=== PATIENT | male | born 1970 | race African-American/Black ===

== ENCOUNTER 2022-04-17 12:27 | Inpatient (IN) | payer MEDICARE, OTHER ==
[~2022-04-17] VITALS: Ht 188 cm; Wt 124.7 kg
--- NOTE | 2022-04-17 12:45 | NUR ---
JAMILA Ying Professional [id number] "Was agressive to staff this am Left the facility and had to be brought back by [employer]". PLACED ON BED, CALM IN NATURE, AAOX4.
[2022-04-17 13:00] LABS: BASOPHILS # (AUTO) 0.1 K/uL (0.0-0.2); BASOPHILS % (AUTO) 1.9 % (0.0-2.0); EOSINOPHILS % (AUTO) 0.7 % (0.0-6.0); HEMATOCRIT 37 % (39-51); HEMOGLOBIN 12.1 g/dL (13.5-17.5); LYMPHOCYTES # (AUTO) 2.4 K/uL (0.8-4.8); LYMPHOCYTES % (AUTO) 34.6 % (20.0-44.0); MEAN CORPUSCULAR HGB CONC 33 g/dl (31.0-36.0); MEAN CORPUSCULAR VOLUME 82 fL (80-96); MONOCYTES # (AUTO) 0.6 K/uL (0.1-1.30); MONOCYTES % (AUTO) 8.3 % (2.0-12.0); NEUTROPHILS # (AUTO) 3.8 K/uL (1.8-8.9); NEUTROPHILS % (AUTO) 54.5 % (43.0-81.0); PLATELET COUNT (AUTO) 166 K/uL (150-450); RED BLOOD CELL COUNT(AUTO) 4.47 MIL/uL (4.5-6.0)
--- NOTE | 2022-04-17 13:00 | NUR ---
Patient calm and cooperative right now. Given Lunch. Ate 100% Leandro DIRECTOR OF RESTAURANT [employer]PERATIONS sitting at direct Line of sight.
--- NOTE | 2022-04-17 13:03 | NUR ---
covid swab collected and sent to lab.
[2022-04-17 13:19] LABS: POTASSIUM 4.1 mmol/L (3.5-5.1)
[2022-04-17 13:24] LABS: ALBUMIN 3.4 g/dL (3.4-5.0); BILIRUBIN,DIRECT 0.1 mg/dL (0.0-0.2); BILIRUBIN,TOTAL 0.3 mg/dL (0.2-1.0); TOTAL PROTEIN, SERUM 7.2 g/dL (6.4-8.2)
[2022-04-17] MEDS ORDERED: diphenhydrAMINE HCL 50 MG/ML VIAL ONE (13:29)
[2022-04-17] MEDS ORDERED: HALOPERIDOL LACTATE INJ 5 MG/ML VIAL ONE (13:29)
[2022-04-17] MEDS ORDERED: LORAZEPAM INJ 2 MG/ML VIAL ONE (13:30)
[2022-04-17] MEDS ORDERED: diphenhydrAMINE HCL 50 MG/ML VIAL IM ONE (13:30)
[2022-04-17] MEDS ORDERED: HALOPERIDOL LACTATE INJ 5 MG/ML VIAL IM ONE (13:30)
[2022-04-17] MEDS ORDERED: LORAZEPAM INJ 2 MG/ML VIAL IM ONE (13:30)
--- NOTE | 2022-04-17 13:30 | NUR ---
Patient is very aggressive and hitting staff, throwing things to staff's. aware and ordered to restraint patient. Security at bedside to help patient back to bed to restrain. Addendum: 04/17/22 at 1343 by JONNA attempted to leave the hospital er, screaming and pushing away staff.
[2022-04-17] MEDS ORDERED: OLANZAPINE 10 MG VIAL IM ONE ×2 (14:30→14:34)
[2022-04-17] MEDS ORDERED: ZIPRASIDONE MESYLATE 20 MG/VIAL VIAL IM ONE ×2 (16:30→16:35)
[2022-04-17] MEDS ORDERED: WATER FOR INJECTION,STERILE 10 ML ONE (16:36)
[2022-04-17 17:57] LABS: BILIRUBIN,URINE NEGATIVE (NEGATIVE); COLOR,URINE YELLOW (YELLOW); LEUKOCYTE ESTERASE ,URINE NEGATIVE (NEGATIVE); NITRITE, URINE NEGATIVE (NEGATIVE); PROTEIN,URINE NEGATIVE (NEGATIVE); UGLUCOSE NEGATIVE (NEGATIVE); UROBILINOGEN,URINE 0.2 EU/dL (0.2)
[2022-04-17 20:00] VITALS: BP 148/81
--- NOTE | 2022-04-17 21:05 | NUR ---
REPORT GIVEN TO GPS RN
--- NOTE | 2022-04-17 21:21 | NUR ---
PATIENT TRASNFERRED VSS
[2022-04-17] MEDS ORDERED: MAG HYDROX/AL HYDROX/SIMETH 30 ML UDC PO PRN (21:30)
[2022-04-17] MEDS ORDERED: ACETAMINOPHEN 325 MG TABLET PO PRN (21:30)
[2022-04-17] MEDS ORDERED: MAGNESIUM HYDROXIDE 30 ML UDC PO PRN (21:30)
[2022-04-17] MEDS ORDERED: LORAZEPAM 0.5 MG TABLET PO PRN (21:30)
[2022-04-17] MEDS ORDERED: BLOOD SUGAR DIAGNOSTIC 1 EACH STRIP IN ONE (22:00)
[2022-04-17] MEDS ORDERED: AMLO-213 PO (23:30)
[2022-04-17] MEDS ORDERED: ASPI-1169 PO (23:31)
[2022-04-17] MEDS ORDERED: ATOR40TA PO (23:31)
[2022-04-17] MEDS ORDERED: DIVA500T54 PO (23:32)
[2022-04-17] MEDS ORDERED: LISI10TA29 PO (23:35)
[2022-04-17] MEDS ORDERED: METF-440 PO (23:36)
[2022-04-17] MEDS ORDERED: OLAN15TA3 PO (23:37)
[2022-04-17] MEDS ORDERED: RISP3TAB5 PO (23:38)
[2022-04-17 23:51] VITALS: BP 132/77
--- NOTE | 2022-04-17 23:54 | NUR ---
RN NOTES : ADMISSION NOTES: ADMITTED THIS 52Y/O MALE PATIENT DIRECT ADMIT FROM [facility]/ED , INITIALLY FROM [facility] ADMITTED TO 5150 HOLD STATUS, PER HOLD PT. STATUS INCREASED AGITATION,AND AGGRESSIVE BEHAVIOR,PHYSICALLY AGGRESSIVE TOWARDS STAFF, ATTEMPT TO LEAVE THE ER ,SCREAMING AND YELLING THROWING OBJECTS IN THE HALLWAY,HITTING STAFF MEMBER WITH HIS FIST,THROWING OBJECTS TO STAFF MEMBER. UPON FACE TO FACE ASSESSMENT PATIENT IS A&O X1,2, UNCOOPERATIVE,UNPREDICTABLE, ANXIOUS ,EASILY AGITATED, RESTLESS ,PARANOID ,DISHELVED , NEEDY DEMEDNING ,POOR DECISION MAKING , LOUD SPEECH, HYPERVERBAL, TALKING TO SELF ,BIZAAR BEHAVIOR, JUMPING ONE TOPIC TO ANOTHER,NEEDS FREQUENTLY REDIRECTIONS , DENIES SI /HI AT THIS TIME, PT. IS POOR HISTORIAN, POOR INSIGHT ,POOR JUDGEMENT , BOTH MD AWARE AND NOTIFIED OF THE ADMISSION, BELONGINGS CONTRABAND WERE DONE , PT. REFUSED SIGNS ADMISSION CONSENT PAPER DUE TO CONFUSED, POOR HYGINE ,ENCOURAGED PT. TO TAKE SHOWER, PT. RIGHTS DISCUSS BY DIRECTOR SELECTION AND ADMINISTRATION , PROVIDE THE PT. WITH HANDBOOK, AND MEDICATIONS GUIDE, ENVIRONMENTAL SAFETY CHECK DONE, ENCOURAGED PT. VERBALIZED ANY FEELING CONCERN TO STAFF, ORIENT TO UNIT POLICY, NO ACUTE DISTRESS NOTED,VITAL SIGNS WNL ,DENIES ANY PAIN AT THIS TIME,WILL CONTINUE TO MONITOR FOR Q15 SAFETY AND BEHAVIOR.
[2022-04-18] MEDS ORDERED: DEXTROSE 50%-WATER 50 ML DISP.SYRIN IV PRN
--- NOTE | 2022-04-18 06:17 | NUR ---
RN NOTES: PLACED CALL TO JEWELL ANDERSEN AT [phone] , REGARDING ABOUT , JAM MAYFIELD ADMIT IN GPS .
--- NOTE | 2022-04-18 07:23 | NUR ---
GPS RN NOTE RECEIVED PATIENT AWAKE AND IN BED, NO S/S OR COMPLAINTS OF PAIN AT THIS TIME. PATIENT IS DISPLAYING NO S/S OF APPARENT DISTRESS AT THIS TIME. PATIENT'S BREATHING IS UNLABORED WITH EQUAL RISE AND FALL OF THE CHEST. PATIENT IS ALERT AND ORIENTED X 1 ON ROOM AIR WITH A SPO2 OF 96%. PATIENT IS COMPLIANT WITH MEDICATION, DISORGANIZED, RESPONDING TO INTERNAL STIMULI, ANXIOUS AND COOPERATIVE. PATIENT WITH SOME CHALLENGE IN COMMUNICATING R/T SPEECH/ COGNITION, BUT ABLE TO MAKE NEEDS KNOWN. PATIENT DENIES SUICIDE IDEATIONS AND HOMICIDAL IDEATIONS AT THIS TIME. PATIENT ASSISTED WITH TURNING AND REPOSITIONING Q2 HR AND PRN FOR COMFORT AND CIRCULATION. PATIENT HAS NO NEEDS AT THIS TIME. PATIENT EDUCATED ON THE USE OF THE CALL WILSON. PATIENT BED SIDE RAILS UP X2 FOR SAFETY, BED IN LOCKED AND LOW. WILL CONTINUE TO MONITOR Q 15 MIS WITH THE HELP OF STAFF TO MAINTAIN SAFETY.
[2022-04-18] MEDS: BLOOD SUGAR DIAGNOSTIC 1 EACH STRIP IN SCH ×4 (07:30→21:57)
[2022-04-18 08:00] VITALS: BP 99/59
[2022-04-18] MEDS: AMLODIPINE BESYLATE 10 MG TABLET PO SCH (08:31)
[2022-04-18] MEDS: METFORMIN 500 MG TABLET PO SCH ×2 (08:31→17:13)
[2022-04-18] MEDS: ASPIRIN 81 MG TAB.CHEW PO SCH (08:31)
[2022-04-18] MEDS: LISINOPRIL (10MG) 10 MG TABLET PO SCH (08:32)
[2022-04-18] MEDS ORDERED: DIVALPROEX SODIUM PO SCH (09:00)
--- NOTE | 2022-04-18 10:20 | NUR ---
GPS RN NOTE PATIENT SEEN BY 2 [employer] OFFICERS FOR INVESTIGATION OF INCIDENT LAST TUESDAY THAT WAS REPORTED BY PATIENT. INVESTIGATION LED BY OFFICER KIRSTEN AND LASTED FOR AROUND 30 MINUTES. THIS NURSE AND NURSE YVONNE WAS IN THE ROOM WELL. PROVIDED PATIENT WITH CALM AND QUIET ENVIRONMENT. IN STABLE CONDITION. Addendum: 04/18/22 at 1049 by NICOLAS MOSELEY RN WRONG ENTRY
[2022-04-18] MEDS ORDERED: NA P133E RC (10:31)
[2022-04-18] MEDS ORDERED: MAGN400O6 PO (10:31)
[2022-04-18] MEDS ORDERED: BISA10SU11 RC (10:31)
[2022-04-18] MEDS ORDERED: ACET-868 PO (10:31)
[2022-04-18] MEDS ORDERED: DOCU-141 PO (10:31)
--- NOTE | 2022-04-18 10:40 | NUR ---
GPS NOTE SEEN BY DR. CROCKER
[2022-04-18] MEDS: LORAZEPAM 1 MG TABLET PO PRN ×2 (12:23→18:25)
[2022-04-18] MEDS: DIVALPROEX SODIUM 500 MG TABLET.DR PO SCH ×2 (12:23→17:13)
[2022-04-18] MEDS: OLANZAPINE 10 MG TABLET PO SCH ×2 (12:23→21:28)
--- NOTE | 2022-04-18 12:30 | NUR ---
GPS RN NOTE PATIENT NOTED TO HAVE VOLATILE BEHAVIOR, NOTED BY DR. CROCKER WELL. GIVEN ATIVAN PRN, AND PROVIDED WITH CALM AND QUIET ENVIRONMENT.
[2022-04-18 16:00] VITALS: BP 142/85
[2022-04-18] MEDS: risperiDONE 1 MG TABLET PO SCH (17:13)
--- NOTE | 2022-04-18 18:36 | NUR ---
GPS RN NOTE PATIENT GIVEN ATIVAN FOR ANXIETY, NOTED PATIENT TO BE ANXIOUS AND RESTLESS AT TIMES. IN STABLE CONDITION.
--- NOTE | 2022-04-18 20:05 | NUR ---
GPS Nurses Opening Notes: PATIENT AWAKE AND IN BED, NO S/S OR COMPLAINTS OF PAIN AT THIS TIME. PATIENT IS DISPLAYING NO S/S OF APPARENT DISTRESS AT THIS TIME. PATIENT'S BREATHING IS UNLABORED WITH EQUAL RISE AND FALL OF THE CHEST. PATIENT IS ALERT AND ORIENTED X 1 ON ROOM AIR WITH A SPO2 OF 96%. PATIENT IS COMPLIANT WITH MEDICATION, DISORGANIZED, ANXIOUS AND COOPERATIVE. PATIENT WITH SOME CHALLENGE IN COMMUNICATING R/T SPEED AND PROBABLE DUE TO LOSS OF DENTURES, BUT ABLE TO MAKE NEEDS KNOWN. PATIENT DENIES SUICIDE IDEATIONS AND HOMICIDAL IDEATIONS AT THIS TIME. PATIENT ASSISTED WITH TURNING AND REPOSITIONING Q2 HR AND PRN FOR COMFORT AND CIRCULATION. PATIENT HAS NO NEEDS AT THIS TIME. PATIENT EDUCATED ON THE USE OF THE CALL WILSON. PATIENT BED SIDE RAILS UP X2 FOR SAFETY, BED IN LOCKED AND LOW. WILL ENDORSE TO NEXT SHIFT FOR CONTINUITY OF CARE.
[2022-04-18 20:12] VITALS: BP 148/72
[2022-04-18] MEDS: ATORVASTATIN 40 MG TABLET PO SCH (21:28)
[2022-04-18] MEDS: INSULIN REGULAR, HUMAN 100 UNIT/ML 3 ML VIAL SQ PRN (21:59)
--- NOTE | 2022-04-19 05:33 | NUR ---
GPS Nurses Notes: Pt still in bed sleeping, no s/s of pain and discomfort, respiration is unlabored, no SOB noted, all needs attended.
[2022-04-19 07:21] LABS: BASOPHILS # (AUTO) 0.1 K/uL (0.0-0.2); BASOPHILS % (AUTO) 0.7 % (0.0-2.0); EOSINOPHILS % (AUTO) 1.5 % (0.0-6.0); HEMATOCRIT 41 % (39-51); HEMOGLOBIN 13.4 g/dL (13.5-17.5); LYMPHOCYTES # (AUTO) 3.2 K/uL (0.8-4.8); LYMPHOCYTES % (AUTO) 44.8 % (20.0-44.0); MEAN CORPUSCULAR HGB CONC 33 g/dl (31.0-36.0); MEAN CORPUSCULAR VOLUME 82 fL (80-96); MONOCYTES # (AUTO) 0.7 K/uL (0.1-1.30); MONOCYTES % (AUTO) 10.1 % (2.0-12.0); NEUTROPHILS % (AUTO) 42.9 % (43.0-81.0); PLATELET COUNT (AUTO) 192 K/uL (150-450); RED BLOOD CELL COUNT(AUTO) 4.95 MIL/uL (4.5-6.0); WHITE BLOOD COUNT (AUTO) 7.1 K/uL (4.3-11.0)
[2022-04-19] MEDS: BLOOD SUGAR DIAGNOSTIC 1 EACH STRIP IN SCH ×4 (07:58→21:48)
[2022-04-19 08:00] VITALS: BP 151/52
[2022-04-19 08:00] LABS: CALCIUM, SERUM 8.8 mg/dL (8.5-10.1); CREATININE 0.9 mg/dL (0.6-1.3)
[2022-04-19] MEDS: DIVALPROEX SODIUM 500 MG TABLET.DR PO SCH ×3 (08:10→17:00)
[2022-04-19] MEDS: ASPIRIN 81 MG TAB.CHEW PO SCH (08:10)
[2022-04-19] MEDS: METFORMIN 500 MG TABLET PO SCH ×2 (08:10→17:00)
[2022-04-19] MEDS: AMLODIPINE BESYLATE 10 MG TABLET PO SCH (08:11)
[2022-04-19] MEDS: LISINOPRIL (10MG) 10 MG TABLET PO SCH (08:11)
[2022-04-19] MEDS: OLANZAPINE 10 MG TABLET PO SCH ×2 (08:12→21:41)
[2022-04-19] MEDS: risperiDONE 1 MG TABLET PO SCH ×2 (08:12→17:00)
[2022-04-19] MEDS: LORAZEPAM 1 MG TABLET PO PRN ×2 (08:14→17:04)
--- NOTE | 2022-04-19 09:00 | NUR ---
RN NOTES PATIENT VERBALLY AGGRESSIVE THROUGH OUT MORNING. SHOUTING, "I WANT TO GO HOME!" ALL MORNING MEDS GIVEN. PO ATIVAN NOT EFFECTIVE FOR PATIENT BEHAVIOR. WILL CONTINUE MONITORING
[2022-04-19] MEDS: INSULIN REGULAR, HUMAN 100 UNIT/ML 3 ML VIAL SQ PRN ×2 (09:08→17:37)
--- NOTE | 2022-04-19 09:20 | NUR ---
RN NOTES PATIENT SEEN BY DR CROCKER.
--- NOTE | 2022-04-19 09:21 | NUR ---
RN NOTES PATIENT INCREASINGLY MORE AGITATED. VERBALLY AGGRESSIVE AND PHYSICALLY HITTING TABLE AND BED SIDE RAILS IN HIS ROOM. NOT ABLE TO VERBALLY REDIRECT OR CALM DOWN AT THIS THIS TIME. STAFF ASSIST NEEDED. MD AND CHARGE NURSE MADE AWARE. WILL CARRY OUT ORDERS AND CONTINUE TO MONITOR PATIENT SAFETY
--- NOTE | 2022-04-19 09:22 | NUR ---
RN NOTES SEEN BY DR LIANG
[2022-04-19] MEDS ORDERED: HALOPERIDOL LACTATE INJ 5 MG/ML VIAL IM STA (09:23)
[2022-04-19] MEDS ORDERED: diphenhydrAMINE HCL 50 MG/ML VIAL IM STA (09:23)
--- NOTE | 2022-04-19 10:10 | NUR ---
RN-CO: Patient was banging butcher and slamming her his door. He was yelling and wanted to go home. Dr Montgomery seen patient and ordered Haldol 5 mg IM and Banadryl 25 mg IM STAT, noted and carried out. Dr Mckee transferred her care to Dr Montgomery as primary psychiatrist, intake made aware and order done.
--- NOTE | 2022-04-19 10:20 | NUR ---
RN NOTES PATIENT CALM AND QUIET IN HIS ROOM AT THIS TIME. BREATHING EVEN AND UNLABORED WITH NO SIGNS OF ACUTE DISTRESS NOTED. DENIES PAIN. WILL CONTINUE TO MONITOR
--- NOTE | 2022-04-19 10:30 | NUR ---
RN-CO: Patient is calm at thistime , seen walking while eating in the hallway. Denied pain and discomforts.
--- NOTE | 2022-04-19 11:00 | NUR ---
RICHARD Initial Discharge: Patient currently resides at [facility] located at [address] [place] [address]; ([phone]). R[facility] and spoke with Jolly who stated pt is on 7 day bed hold and would need a psych clearance and pt can return back then. RICHARD contacted pt's LPS Conservator Briseida ([phone]) and notified that pt is at [facility]. She will be sending the documents/detain and treat. RICHARD will work with the MD and pt to help coordinate appropriate placement.
--- NOTE | 2022-04-19 11:01 | NUR ---
RICHARD Clinical Note: Pt placed on a 5150 hold for danger to others and GD. Pt was verbally and physically aggressive at this facility. Patient currently resides at [facility] located at [address] [place] [address]; ([phone]). RICHARD contacted [facility] and spoke with Jolly who stated pt is on 7 day bed hold and would need a psych clearance and pt can return back then. RICHARD contacted pt's LPS Conservator Briseida ([phone]) and notified that pt is at [facility]. She will be sending the documents/detain and treat.
--- NOTE | 2022-04-19 11:01 | NUR ---
LPS Conservator: SW contacted pt's LPS Conservator Briseida ([phone]) and notified that pt is at [facility]. She will be sending the documents/detain and treat.
--- NOTE | 2022-04-19 11:58 | NUR ---
LPS Conservator: LPS Conservator Briseida ([phone]) sent Detain and Treat. SW placed in pt's chart and notified charge nurse Ni.
--- NOTE | 2022-04-19 14:36 | NUR ---
Treatment Plan: Pt refused to sign treatment plan and was verbally abusive.
[2022-04-19 16:59] VITALS: BP 118/66
[2022-04-19 20:33] VITALS: BP 107/75
[2022-04-19] MEDS: TEMAZEPAM 7.5 MG CAPSULE PO PRN (21:41)
[2022-04-19] MEDS: ATORVASTATIN 40 MG TABLET PO SCH (21:42)
--- NOTE | 2022-04-19 21:43 | NUR ---
GPS RN NOTE PT REQUESTING FOR SLEEPING MED, RESTORIL 7.5 MG PO GIVEN. CONTINUE TO MONITOR.
--- NOTE | 2022-04-19 22:43 | NUR ---
GPS RN NOTE PT REQUESTING FOR SLEEPING MED, RESTORIL 7.5 MG PO GIVEN. CONTINUE TO MONITOR. Addendum: 04/20/22 at 0707 by ORLANDO LLANOS RN ERROR IN WRITING
--- NOTE | 2022-04-19 22:44 | NUR ---
GPS RN NOTE PT FALL BACK TO SLEEP, NO DISTRESS OR DISCOMFORT NOTED.
[2022-04-20 08:00] VITALS: BP 142/81
[2022-04-20] MEDS: OLANZAPINE 10 MG TABLET PO SCH (08:31)
[2022-04-20] MEDS: BLOOD SUGAR DIAGNOSTIC 1 EACH STRIP IN SCH ×4 (08:31→22:15)
[2022-04-20] MEDS: LISINOPRIL (10MG) 10 MG TABLET PO SCH (08:31)
[2022-04-20] MEDS: ASPIRIN 81 MG TAB.CHEW PO SCH (08:31)
[2022-04-20] MEDS: DIVALPROEX SODIUM 500 MG TABLET.DR PO SCH ×3 (08:31→16:30)
[2022-04-20] MEDS: risperiDONE 1 MG TABLET PO SCH ×2 (08:32→16:30)
[2022-04-20] MEDS: AMLODIPINE BESYLATE 10 MG TABLET PO SCH (08:32)
[2022-04-20] MEDS: METFORMIN 500 MG TABLET PO SCH ×2 (08:32→17:13)
[2022-04-20] MEDS ORDERED: diphenhydrAMINE HCL 50 MG/ML VIAL IM STA (10:51)
[2022-04-20] MEDS ORDERED: HALOPERIDOL LACTATE INJ 5 MG/ML VIAL IM STA (10:52)
--- NOTE | 2022-04-20 11:09 | NUR ---
PATIENT AGITATED, YELLING AND UNPREDICTABLE, VOLUNTARY ACCEPT INJECTIONS WHICH ARE BENADRYL 25 MG IM AND HALDOL 5MG IM. PATIENT REFUSED TAKE VITAL SIGN.
[2022-04-20] MEDS: INSULIN REGULAR, HUMAN 100 UNIT/ML 3 ML VIAL SQ PRN (12:41)
[2022-04-20 16:00] VITALS: BP 145/76
[2022-04-20] MEDS: HALOPERIDOL 5 MG TABLET PO SCH (16:30)
[2022-04-20] MEDS: diphenhydrAMINE HCL 25 MG CAPSULE PO SCH (17:59)
[2022-04-20 19:50] VITALS: BP 133/76
--- NOTE | 2022-04-20 19:50 | NUR ---
GPS RN OPENING NOTES: RECEIVED PATIENT SLEEPING IN BED. EASILY AROUSES EASILY. NO S/S OF DISTRESS. RESPIRATION EVEN AND UNLABORED WITH EQUAL RISE AND FALL OF THE CHEST, ON ROOM AIR. OFFERED FLUID AND SNACKS TOLERATED. BED IN LOWEST POSITION AND LOCKED, SIDE RAILS UP X2 FOR SAFETY. WILL CONTINUE TO MONITOR Q15 FOR MOOD, SAFETY AND BEHAVIOR.
[2022-04-20] MEDS: ATORVASTATIN 40 MG TABLET PO SCH (22:10)
--- NOTE | 2022-04-21 06:58 | NUR ---
GPS RN CLOSING NOTES: PATIENT IS AWAKE AND WATCHING TV IN DAY ROOM. PATIENT SLEPT 9HRS THIS SHIFT. NO S/S OF DISTRESS. RESPIRATION EVEN AND UNLABORED WITH EQUAL RISE AND FALL OF THE CHEST, ON ROOM AIR. ALL PATIENT CARE NEEDS HAVE BEEN MET ANTICIPATED. WILL CONTINUE TO MONITOR Q15 FOR SAFETY, MOOD AND BEHAVIOR AND ENDORSE TO AM SHIFT.
[2022-04-21] MEDS: METFORMIN 500 MG TABLET PO SCH ×2 (07:45→18:05)
[2022-04-21] MEDS: BLOOD SUGAR DIAGNOSTIC 1 EACH STRIP IN SCH ×4 (07:52→20:58)
[2022-04-21] MEDS: INSULIN REGULAR, HUMAN 100 UNIT/ML 3 ML VIAL SQ PRN ×2 (07:56→21:08)
[2022-04-21 08:00] VITALS: BP_SYST 118; BP_SYST 149; BP_DIAS 77; BP_DIAS 81
[2022-04-21] MEDS: risperiDONE 1 MG TABLET PO SCH ×2 (08:01→18:01)
[2022-04-21] MEDS: HALOPERIDOL 5 MG TABLET PO SCH ×3 (08:02→18:00)
[2022-04-21] MEDS: diphenhydrAMINE HCL 25 MG CAPSULE PO SCH ×2 (08:02→18:00)
[2022-04-21] MEDS: DIVALPROEX SODIUM 500 MG TABLET.DR PO SCH ×3 (08:02→18:00)
[2022-04-21] MEDS: ASPIRIN 81 MG TAB.CHEW PO SCH (08:03)
[2022-04-21] MEDS: AMLODIPINE BESYLATE 10 MG TABLET PO SCH (08:04)
[2022-04-21] MEDS: LORAZEPAM 1 MG TABLET PO PRN ×2 (08:25→17:17)
[2022-04-21] MEDS: LISINOPRIL (10MG) 10 MG TABLET PO SCH (09:00)
--- NOTE | 2022-04-21 11:11 | NUR ---
LPS Conservator: RICHARD received a call from [facility] Conservator Briseida ([phone]) who stated that she will visit pt tomorrow 04/22. She stated pt's court hearing is TuesdayApril 27 and reported pt is discharged hospital does not need to attend and that [facility] will proceed with it. RICHARD notified Dr. Montgomery.
[2022-04-21 16:00] VITALS: BP 145/73
--- NOTE | 2022-04-21 19:08 | NUR ---
PT COMPLIANT WITH MEDICATIONS, ALL DAY EVERY HOUR HE DEMANDED HIS MONEY AND STATED''TODAY IS TUESDAY RIGHT? TODAY IS MY PAY DAY AND I WANT MY MONEY AND I WANT MY MONEY AND I WANT TO GO HOME NOW", HE WAS REDIRECTED AND GIVEN JUICE, SNACKS AND ATIVAN PRN PER ORDER, HE WAS COMPLIANT AND REDIRECTED BACK TO ROOM TO REST. NO OTHER EPISODES NOTED AT DURING DAY SHIFT, EASILY REDIRECTED AND OBEYED SIMPLE COMMANDS
--- NOTE | 2022-04-21 19:27 | NUR ---
PT HAD REFUSED THE BS TO BE TAKEN AT 1730, AWAITED TO ASK AGAIN, PT IS NOW ASLEEP AND DELEGATED THE 1730 BS TEST TO ONCOMING RN SHIFT NURSE FOR OBTAINING THE BS READING. PT IS ASLEEP AND FELT BEST TO ALLOW HIM TO REST
[2022-04-21 20:00] VITALS: BP 138/68
[2022-04-21] MEDS: ATORVASTATIN 40 MG TABLET PO SCH (20:58)
[2022-04-21] MEDS: TEMAZEPAM 7.5 MG CAPSULE PO PRN (21:04)
[2022-04-22] MEDS: LORAZEPAM 1 MG TABLET PO PRN ×2 (00:59→19:22)
--- NOTE | 2022-04-22 05:03 | NUR ---
closing notes: alert and orientated X3 requisting food frequently friendly and laughing child like behavior polite to the night nurse calm manner 0100 he came to the nursing station with body movement and agitation in his voice...inquiring about the money he is due "pay Day" "Where is the money $40.00" .Informed him it ws not payday here and I did not owe him the money but I could give him a snack, he walked back tohis room snack given and Ativan given PO. After eating he went to be and slept soundly
[2022-04-22] MEDS: METFORMIN 500 MG TABLET PO SCH ×2 (07:57→17:45)
[2022-04-22] MEDS: BLOOD SUGAR DIAGNOSTIC 1 EACH STRIP IN SCH ×4 (08:04→21:36)
[2022-04-22] MEDS: risperiDONE 1 MG TABLET PO SCH ×2 (08:05→17:34)
[2022-04-22] MEDS: AMLODIPINE BESYLATE 10 MG TABLET PO SCH (08:06)
[2022-04-22] MEDS: ASPIRIN 81 MG TAB.CHEW PO SCH (08:06)
[2022-04-22] MEDS: diphenhydrAMINE HCL 25 MG CAPSULE PO SCH ×2 (08:07→17:34)
[2022-04-22] MEDS: DIVALPROEX SODIUM 500 MG TABLET.DR PO SCH ×3 (08:07→17:34)
[2022-04-22] MEDS: HALOPERIDOL 5 MG TABLET PO SCH ×3 (08:07→17:34)
[2022-04-22] MEDS: LISINOPRIL (10MG) 10 MG TABLET PO SCH (08:08)
--- NOTE | 2022-04-22 11:10 | NUR ---
LPS Conservator: LPS Conservator Briseida ([phone]) came to the hospital to assess pt.
--- NOTE | 2022-04-22 18:43 | NUR ---
PT COOPERATIVE TODAY, WAS REDIRECTED OFTEN DURING DAY SHIFT, KEPT AKSING IF HIS MONEY WAS HERE YET, HE WAS TOLD ALL OF HIS BELONGINGS WERE KEPT IN A SAFE PLACE AND THAT ANY MONEY HE HAD WAS KEPT IN THE SAFE, EXPLAINED TO HIM THAT ALL OF HIS BELONGINGS, CLOTHES, ANY ITEMS AND ANY MONEY THAT IS HIS WILL BE GIVEN TO HIM ONCE HE HAS AUTHORIZATION TO BE DISCHARGED AND THAT THE TIME OF D/C WAS BEING PROCESSED THROUGH AND DETERMINED OF THE EXACT DATE.
--- NOTE | 2022-04-22 19:25 | NUR ---
RN NOTES: ANXIETY PT. C/O FEELING ANXIOUS .RESTLESS , PACING IN HALLWAY ,PRN ATIVAN 1 MG PO GIVEN PER PT. REQUEST, WILL CONTINUE TO MONITOR.
--- NOTE | 2022-04-22 20:16 | NUR ---
RN NOTES: PT.AWAKE ALERT CONFUSED,HYPERVERBAL.FLAT AFFECT,FORGETFUL,ANXIOUS,EASILY AGITATE.PARANOID,UNCOOPERTIVE,UNPREDICTABLE, DISORGANIZED, NEEDS FREQUENTLY REDIRECTIONS, ENCOURAGED PT. TO VERBALIZED ANY FEELING OR CONCERN AND GROUP ACTIVITY ,WILL CONTINUE.MONITORING FOR SAFETY AND BEHAVIOR.
[2022-04-22] MEDS: INSULIN REGULAR, HUMAN 100 UNIT/ML 3 ML VIAL SQ PRN (21:35)
[2022-04-22] MEDS: ATORVASTATIN 40 MG TABLET PO SCH (21:36)
[2022-04-22] MEDS: TEMAZEPAM 7.5 MG CAPSULE PO PRN (22:08)
--- NOTE | 2022-04-22 22:08 | NUR ---
RN NOTES: INSOMNIA PT. C/O UNABLE TO SLEEP ,PRN RESTORIL 7.5MG GIVEN PO FOR SLEEP WILL CONTINUE TO MONITOR.
[2022-04-23] MEDS: LORAZEPAM 1 MG TABLET PO PRN ×2 (06:39→19:35)
--- NOTE | 2022-04-23 06:45 | NUR ---
RN NOTES: ANXIETY PT. C/O FEELING ANXIOUS .RESTLESS , PACING IN HALLWAY ,PRN ATIVAN 1 MG PO GIVEN PER PT. REQUEST, WILL CONTINUE TO MONITOR.
[2022-04-23] MEDS: INSULIN REGULAR, HUMAN 100 UNIT/ML 3 ML VIAL SQ PRN ×4 (07:43→22:03)
[2022-04-23 08:00] VITALS: BP 130/69
[2022-04-23] MEDS: BLOOD SUGAR DIAGNOSTIC 1 EACH STRIP IN SCH ×4 (08:14→22:15)
[2022-04-23] MEDS: HALOPERIDOL 5 MG TABLET PO SCH ×3 (08:15→16:28)
[2022-04-23] MEDS: METFORMIN 500 MG TABLET PO SCH ×2 (08:15→17:06)
[2022-04-23] MEDS: risperiDONE 1 MG TABLET PO SCH ×2 (08:15→16:28)
[2022-04-23] MEDS: DIVALPROEX SODIUM 500 MG TABLET.DR PO SCH ×3 (08:15→16:28)
[2022-04-23] MEDS: ASPIRIN 81 MG TAB.CHEW PO SCH (08:15)
[2022-04-23] MEDS: diphenhydrAMINE HCL 25 MG CAPSULE PO SCH ×2 (08:15→16:28)
[2022-04-23] MEDS: AMLODIPINE BESYLATE 10 MG TABLET PO SCH (08:16)
[2022-04-23] MEDS: LISINOPRIL (10MG) 10 MG TABLET PO SCH (08:16)
--- NOTE | 2022-04-23 10:36 | NUR ---
LPS Conservator: Patient's court hearing for renewal of conservatorship is on 04/27/2022 at 1:30PM. Pt's LPS Conservator Briseida ([phone]) notified this scientific technical writer. Dr. Montgomery aware. Link: [email or web address]
[2022-04-23 16:00] VITALS: BP 144/79
--- NOTE | 2022-04-23 19:36 | NUR ---
RN NOTES: ANXIETY PT. C/O FEELING ANXIOUS .RESTLESS , PACING IN HALLWAY ,PRN ATIVAN 1 MG PO GIVEN PER PT. REQUEST, WILL CONTINUE TO MONITOR.
[2022-04-23 20:21] VITALS: BP 125/81
--- NOTE | 2022-04-23 20:23 | NUR ---
RN NOTES: PT.RESTING HIS ROOM AWAKE ALERT CONFUSED,HYPERVERBAL.FLAT AFFECT,FORGETFUL,ANXIOUS,EASILY AGITATED.PARANOID,UNCOOPERTIVE,UNPREDICTABLE, DISORGANIZED, NEEDS FREQUENTLY REDIRECTIONS, ENCOURAGED PT. TO VERBALIZED ANY FEELING OR CONCERN AND GROUP ACTIVITY WILL CONTINUE.MONITORING FOR SAFETY AND BEHAVIOR.
[2022-04-23] MEDS: ATORVASTATIN 40 MG TABLET PO SCH (22:02)
[2022-04-23] MEDS: TEMAZEPAM 7.5 MG CAPSULE PO PRN (22:36)
[2022-04-24] MEDS: BLOOD SUGAR DIAGNOSTIC 1 EACH STRIP IN SCH ×4 (07:34→21:52)
[2022-04-24] MEDS: INSULIN REGULAR, HUMAN 100 UNIT/ML 3 ML VIAL SQ PRN (07:45)
[2022-04-24 08:00] VITALS: BP 140/73
[2022-04-24] MEDS: ASPIRIN 81 MG TAB.CHEW PO SCH (08:49)
[2022-04-24] MEDS: DIVALPROEX SODIUM 500 MG TABLET.DR PO SCH ×3 (08:49→16:48)
[2022-04-24] MEDS: METFORMIN 500 MG TABLET PO SCH ×2 (08:49→16:48)
[2022-04-24] MEDS: LISINOPRIL (10MG) 10 MG TABLET PO SCH (08:50)
[2022-04-24] MEDS: HALOPERIDOL 5 MG TABLET PO SCH ×3 (08:50→16:48)
[2022-04-24] MEDS: AMLODIPINE BESYLATE 10 MG TABLET PO SCH (08:50)
[2022-04-24] MEDS: diphenhydrAMINE HCL 25 MG CAPSULE PO SCH ×2 (08:51→16:48)
[2022-04-24] MEDS: risperiDONE 1 MG TABLET PO SCH ×2 (08:51→16:49)
[2022-04-24 16:00] VITALS: BP 136/79
--- NOTE | 2022-04-24 20:22 | NUR ---
RN NOTES: PT.RESTING HIS ROOM AWAKE ALERT CONFUSED,HYPERVERBAL.FLAT AFFECT,FORGETFUL,ANXIOUS,EASILY AGITATED.PARANOID,UNCOOPERATIVE,UNPREDICTABLE, DISORGNIZED,ISOLATIVE NEEDS FREQUENTLY REDIRECTIONS, ENCOURAGED PT. TO VERBALIZED ANY FEELING OR CONCERN AND GROUP ACTIVITY WILL CONTINUE.MONITORING FOR SAFETY AND BEHAVIOR.
[2022-04-24 20:23] VITALS: BP 135/73
[2022-04-24] MEDS: ATORVASTATIN 40 MG TABLET PO SCH (21:11)
[2022-04-25] MEDS: LORAZEPAM 1 MG TABLET PO PRN (05:42)
--- NOTE | 2022-04-25 05:43 | NUR ---
RN NOTES: ANXIETY PT. C/O FEELING ANXIOUS .RESTLESS , PACING IN HALLWAY ,PRN ATIVAN 1 MG PO GIVEN PER PT. REQUEST, WILL CONTINUE TO MONITOR.
--- NOTE | 2022-04-25 06:31 | NUR ---
RN NOTES: PT. REFUSED AM CARE AND REFUSED TO TAKE SHOWER REFUSED TO CHANGE GOWN ,LINEN , ENCOURAGED PT. FOR HYGINE, PER PT.NURSE I AM FINE , PT. STRONGLY REFUSED, JUST GIVE ME SOME FOOD , I AM HUNGRY , SNACKS PROVIDE TO THE PT. BEHAVIOUR UNCOOPERATIVE , ANXIOUS , EASILY AGITED, WILL ENDORSE TO AM SHIFT.
[2022-04-25 08:00] VITALS: BP 133/88
[2022-04-25] MEDS: BLOOD SUGAR DIAGNOSTIC 1 EACH STRIP IN SCH ×4 (08:47→21:02)
[2022-04-25] MEDS: INSULIN REGULAR, HUMAN 100 UNIT/ML 3 ML VIAL SQ PRN ×2 (08:49→21:02)
[2022-04-25] MEDS: diphenhydrAMINE HCL 25 MG CAPSULE PO SCH ×2 (08:54→17:13)
[2022-04-25] MEDS: ASPIRIN 81 MG TAB.CHEW PO SCH (08:54)
[2022-04-25] MEDS: DIVALPROEX SODIUM 500 MG TABLET.DR PO SCH ×3 (08:54→17:13)
[2022-04-25] MEDS: risperiDONE 1 MG TABLET PO SCH ×2 (08:54→17:13)
[2022-04-25] MEDS: METFORMIN 500 MG TABLET PO SCH ×2 (08:54→17:13)
[2022-04-25] MEDS: HALOPERIDOL 5 MG TABLET PO SCH ×3 (08:54→17:13)
[2022-04-25] MEDS: LISINOPRIL (10MG) 10 MG TABLET PO SCH (08:55)
[2022-04-25] MEDS: AMLODIPINE BESYLATE 10 MG TABLET PO SCH (08:55)
--- NOTE | 2022-04-25 12:05 | NUR ---
RN OPENING NOTE PATIENT AWAKE IN BED RESTING. A/O X1 CONFUSED, HYPERVERBAL, EASILY AGITATED. NO S/S OF PAIN NOTED AT THIS TIME. ON ROOM AIR, NO DISTRESS OR SHORTNESS OF BREATH NOTED. PATIENT IS COMPLIANT WITH MEDICATIONS. PATIENT DENIES SUICIDE IDEATION AND HOMICIDAL IDEATIONS AT THIS TIME. FALL AND SAFETY MEASURES IN PLACE, BED ALARM ON, BED IN LOW AND LOCK POSITION, CALL LIGHT AND TABLE WITHIN EASY REACH, SIDE RAILS UP X2. WILL CONTINUE TO MONITOR Q15 MINUTES WITH HELP OF STAFF TO MAINTAIN SAFETY.
[2022-04-25 16:00] VITALS: BP 136/89
[2022-04-25 19:56] VITALS: BP 138/84
[2022-04-25] MEDS: ATORVASTATIN 40 MG TABLET PO SCH (21:02)
[2022-04-26] MEDS: BLOOD SUGAR DIAGNOSTIC 1 EACH STRIP IN SCH ×4 (07:37→21:57)
[2022-04-26 08:00] VITALS: BP 118/85
[2022-04-26] MEDS: METFORMIN 500 MG TABLET PO SCH ×2 (08:00→17:55)
[2022-04-26] MEDS: DIVALPROEX SODIUM 500 MG TABLET.DR PO SCH ×3 (09:25→17:50)
[2022-04-26] MEDS: risperiDONE 1 MG TABLET PO SCH ×2 (09:25→17:50)
[2022-04-26] MEDS: ASPIRIN 81 MG TAB.CHEW PO SCH (09:25)
[2022-04-26] MEDS: HALOPERIDOL 5 MG TABLET PO SCH ×3 (09:27→17:50)
[2022-04-26] MEDS: diphenhydrAMINE HCL 25 MG CAPSULE PO SCH ×2 (09:27→17:50)
[2022-04-26] MEDS: AMLODIPINE BESYLATE 10 MG TABLET PO SCH (09:27)
[2022-04-26] MEDS: LISINOPRIL (10MG) 10 MG TABLET PO SCH (09:28)
--- NOTE | 2022-04-26 10:57 | NUR ---
RN-CO: PATIENT IS AWAKE , HE IS SOMEWHAT BETTER. HE IS COOPERATIVE TO STAFF. HE IS ALSO VISIBLE IN THE UNIT AND PARTICIPATING IN GROUPS.PATIENT DENIED PAIN AND DISCOMFORTS.
[2022-04-26] MEDS: INSULIN REGULAR, HUMAN 100 UNIT/ML 3 ML VIAL SQ PRN (12:18)
[2022-04-26 16:00] VITALS: BP 117/71
[2022-04-26 20:06] VITALS: BP 134/72
[2022-04-26] MEDS: ATORVASTATIN 40 MG TABLET PO SCH (21:57)
[2022-04-27] MEDS: BLOOD SUGAR DIAGNOSTIC 1 EACH STRIP IN SCH ×4 (07:40→21:56)
[2022-04-27 08:00] VITALS: BP 123/85
[2022-04-27] MEDS: ASPIRIN 81 MG TAB.CHEW PO SCH (08:20)
[2022-04-27] MEDS: HALOPERIDOL 5 MG TABLET PO SCH ×3 (08:20→16:31)
[2022-04-27] MEDS: diphenhydrAMINE HCL 25 MG CAPSULE PO SCH ×2 (08:20→16:31)
[2022-04-27] MEDS: LISINOPRIL (10MG) 10 MG TABLET PO SCH (08:20)
[2022-04-27] MEDS: risperiDONE 1 MG TABLET PO SCH ×2 (08:20→16:31)
[2022-04-27] MEDS: AMLODIPINE BESYLATE 10 MG TABLET PO SCH (08:21)
[2022-04-27] MEDS: METFORMIN 500 MG TABLET PO SCH ×2 (08:23→18:27)
[2022-04-27] MEDS: DIVALPROEX SODIUM 500 MG TABLET.DR PO SCH ×3 (08:23→16:31)
[2022-04-27] MEDS: INSULIN REGULAR, HUMAN 100 UNIT/ML 3 ML VIAL SQ PRN ×2 (12:00→22:02)
--- NOTE | 2022-04-27 14:12 | NUR ---
SNF Contact: SW spoke with Jolly admin from [facility] ([phone]) (F: [phone]) and sent pt's updated clinicals.
[2022-04-27 16:00] VITALS: BP 116/72
--- NOTE | 2022-04-27 19:30 | NUR ---
GPS RN NOTE, RECEIVED PATIENT AWAKE AND IN BED, NO S/S OR COMPLAINTS OF PAIN AT THIS TIME. PATIENT IS DISPLAYING NO S/S OF APPARENT DISTRESS AT THIS TIME. PATIENT BREATHING IS UNLABORED WITH EQUAL RISE AND FALL OF THE CHEST. PATIENT IS ALERT AND ORIENTED X 1-2 ON ROOM AIR WITH A SPO2 99%. PATIENT IS COMPLIANT WITH MEDICATIONS, ANXIOUS, LABILE, CONFUSED AT TIMES, MAKES NEEDS KNOWN, DISORGANIZED, AND COOPERATIVE. PATIENT DENIES SUICIDAL AND HOMICIDAL IDEATIONS AT THIS TIME. PATIENT ASSISTED WITH TURNING AND REPOSITIONING Q2HR AND PRN FOR COMFORT AND CIRCULATION. PATIENT HAS NO NEEDS AT THIS TIME. PATIENT EDUCATED ON THE USE OF THE CALL WILSON. PATIENT BED SIDE RAILS UP X 2 FOR SAFETY. PATIENT BED IS LOCKED, LOW, WITH BED ALARM ON. WILL CONTINUE TO MONITOR THIS PATIENT Q15 MINUTES WITH THE HELP OF STAFF TO MAINTAIN SAFETY.
[2022-04-27 20:18] VITALS: BP 111/73
[2022-04-27] MEDS: ATORVASTATIN 40 MG TABLET PO SCH (21:48)
--- NOTE | 2022-04-27 22:07 | NUR ---
GPS RN NOTE, PERFORMED ACCU CHECK ON PATIENT WITH A BLOOD SUGAR RESULT OF 142. GAVE 2 UNITS OF REGULAR INSULIN PER SLIDING SCALE. WILL CONTINUE TO MONITOR THIS PATIENT WITH THE HELP OF STAFF.
[2022-04-28 08:00] VITALS: BP 121/87
[2022-04-28] MEDS: diphenhydrAMINE HCL 25 MG CAPSULE PO SCH ×2 (08:44→17:14)
[2022-04-28] MEDS: HALOPERIDOL 5 MG TABLET PO SCH ×3 (08:44→17:14)
[2022-04-28] MEDS: METFORMIN 500 MG TABLET PO SCH ×2 (08:44→17:14)
[2022-04-28] MEDS: ASPIRIN 81 MG TAB.CHEW PO SCH (08:44)
[2022-04-28] MEDS: DIVALPROEX SODIUM 500 MG TABLET.DR PO SCH ×3 (08:45→17:14)
[2022-04-28] MEDS: LISINOPRIL (10MG) 10 MG TABLET PO SCH (08:45)
[2022-04-28] MEDS: risperiDONE 1 MG TABLET PO SCH ×2 (08:45→17:14)
[2022-04-28] MEDS: AMLODIPINE BESYLATE 10 MG TABLET PO SCH (08:45)
[2022-04-28] MEDS: BLOOD SUGAR DIAGNOSTIC 1 EACH STRIP IN SCH ×4 (08:45→21:54)
[2022-04-28] MEDS: INSULIN REGULAR, HUMAN 100 UNIT/ML 3 ML VIAL SQ PRN ×2 (13:06→17:15)
[2022-04-28 16:00] VITALS: BP 142/88
--- NOTE | 2022-04-28 19:30 | NUR ---
GPS RN NOTES RECEIVED LAYING ON BED INSIDE HIS ROOM,A/O X1,CALM AND QUIET,FOLLOW DIRECTIONS,VERBALIZED NEEDSWILL CONTINUE TO MONITOR BEHAVIOR.
[2022-04-28 20:00] VITALS: BP 138/79
[2022-04-28] MEDS: ATORVASTATIN 40 MG TABLET PO SCH (21:53)
--- NOTE | 2022-04-28 22:00 | NUR ---
GPS RN NOTES ACCU-CHECK BLOOD SUGAR CHECK 114,NO INSULIN COVERAGE.
[2022-04-28] MEDS: TEMAZEPAM 7.5 MG CAPSULE PO PRN (22:02)
--- NOTE | 2022-04-28 22:02 | NUR ---
GPS RN NOTES C/O INSOMNIA,RESTORIL 7.5,G PO GIVEN PER PATIENT REQUEST.
--- NOTE | 2022-04-29 06:31 | NUR ---
GPS RN NOTES SLEEP WELL AT NIGHT,NO COMPLAINTS THRU OUT SHIFT.POSSIBLE D/C TODAY TO SNF ([facility]) AT 1 PM
[2022-04-29] MEDS: BLOOD SUGAR DIAGNOSTIC 1 EACH STRIP IN SCH ×2 (07:56→12:05)
[2022-04-29 08:00] VITALS: BP 119/78
--- NOTE | 2022-04-29 08:09 | NUR ---
RICHARD Discharge Note: Patient will return back to [facility] located at [address] [place] [address]; ([phone]). Please arrange transportation at 1PM. RICHARD contacted [facility] and spoke with Jolly admissions who stated pt is welcomed back. Pts LPS conservator Briseida ([phone]) is aware and agreeable. Pt has no other supportive contact. Pt is alert and oriented x2. Pt denies suicidal or homicidal ideation. Pt denies visual/auditory hallucinations. Patient will follow-up at the facility with Dr. Montgomery (psychiatrist) [id number] [place] [phone]; ([phone]). Patient will follow up with (Psychiatrist) Dr. Gaspar at [address] [place] [address] ([phone]). Patient presents with euthymic mood and congruent affect.
[2022-04-29] MEDS: AMLODIPINE BESYLATE 10 MG TABLET PO SCH (08:47)
[2022-04-29] MEDS: risperiDONE 1 MG TABLET PO SCH (08:47)
[2022-04-29] MEDS: DIVALPROEX SODIUM 500 MG TABLET.DR PO SCH ×2 (08:47→12:09)
[2022-04-29] MEDS: ASPIRIN 81 MG TAB.CHEW PO SCH (08:47)
[2022-04-29] MEDS: HALOPERIDOL 5 MG TABLET PO SCH ×2 (08:47→12:09)
[2022-04-29] MEDS: diphenhydrAMINE HCL 25 MG CAPSULE PO SCH (08:47)
[2022-04-29] MEDS: METFORMIN 500 MG TABLET PO SCH (08:47)
[2022-04-29 08:48] VITALS: BP 119/78
[2022-04-29] MEDS: LISINOPRIL (10MG) 10 MG TABLET PO SCH (08:48)
--- NOTE | 2022-04-29 09:03 | NUR ---
Dr. Montgomery gave an order to D/C pt. to [facility] and to folllow up with the psych and medical doctors. Dr. Montgomery gave an order to continue same meds including prn.
--- NOTE | 2022-04-29 13:30 | NUR ---
RN-DISCHARGE NOTES PATIENT HAD A DISCHARGE ORDER FROM DR. LIANG (PSYCHIATRIST) HAYDEN MOLINA MEDICALLY CLEARED FOR DISCHARGE. REPORT WAS GIVEN TO LUDWIG (VARNISHING UNIT TOOL SETTER). PATIENT DID NOT VERBALIZE SI/HI,DENIES VISUAL/AUDITORY HALLUCINATIONS AT THE TIME OF DISCHARGE. PATIENT LEFT THE UNIT IN STABLE CONDITION A/O X2,NO ACUTE DISTRESS NOTED. ALL BELONGINGS WAS GIVEN BACK TO THE PATIENT.
== END 2022-04-29 13:30 | DRG 885 ==
LOC: ER 12:34 → TRANSITION 14:34 → GPS 19:45
PROVIDERS: ADMIT Psychiatry & Neurology Psychosomatic Medicine; ATTEND Registered Nurse
DX: F25.0 Schizoaffective disorder, bipolar type (principal); F23 Brief psychotic disorder; E11.9 Type 2 diabetes mellitus without complications; G40.909 Epilepsy, unspecified, not intractable, without status epilepticus; J44.9 Chronic obstructive pulmonary disease, unspecified; I10 Essential (primary) hypertension; E78.5 Hyperlipidemia, unspecified; F89 Unspecified disorder of psychological development; F32.9 Major depressive disorder, single episode, unspecified; F22 Delusional disorders; Z79.84 Long term (current) use of oral hypoglycemic drugs; Z79.82 Long term (current) use of aspirin; Z79.899 Other long term (current) drug therapy; Z20.822 Contact with and (suspected) exposure to COVID-19
CPT/HCPCS: 36415; 80048-TC; 80061-TC; 80076-TC; 80164-TC; 82962-TC; 85025-TC; 87081-TC; C9803; G0480; J1200; J1630; J1815; J2060; J3486; J3490; Q0163